=== PATIENT | female | born 1980 | race African-American/Black ===

== ENCOUNTER 2018-04-19 14:25 | Emergency (ER) | payer OTHER, SELFPAY ==
[2018-04-19] MEDS ORDERED: Ibuprofen 800 MG TAB ONE (16:12)
[2018-04-19] MEDS ORDERED: Lidocaine 1% w/Epinephrine 1:100K 20 ML VIAL ONE (16:15)
[2018-04-19] MEDS ORDERED: Bacitracin Zinc 1 Packet ONE (17:12)
== END 2018-04-19 17:27 | disposition home or self-care (01) ==
LOC: ERS 14:25
DX: L02.412 Cutaneous abscess of left axilla (principal); L73.2 Hidradenitis suppurativa; F17.210 Nicotine dependence, cigarettes, uncomplicated
CPT/HCPCS: 10060; J2001

== ENCOUNTER 2018-09-07 10:56 | Outpatient (CLI) | payer OTHER ==
[~2018-09-07 10:56] MED LIST: Iopamidol 370 76% 100 ML VIAL ONE
--- NOTE | 2018-09-07 15:12 | CT ---
CT ABDOMEN AND PELVIS WITH IV AND ORAL CONTRAST: Date: 09/07/18 HISTORY: Liver mass, enlarged uterus. FINDINGS: The exam was not performed using the liver mass/hemangioma protocol. Comparison made to CT stone protocol of 08/13/[address] abdomen/pelvis with contrast of 03/29/12. There is a calcified granuloma in the right lung base. The spleen, pancreas, adrenal glands, and kidneys are normal. Calcified gallstones are present. There is a 2.3 cm enhancing mass in the left lobe of the liver. This is larger than on the exam of . No free air, free fluid, or lymphadenopathy is seen in the abdomen or pelvis. The small bowel loops a re not abnormally dilated. A normal appearing appendix is seen. There is colonic diverticulosis witho ut evidence of diverticulitis. Enlarged, heterogeneous uterus consistent with fibroids is present. There is a 5.5 cm cystic adnexal mass. No acute osseous abnormalities are see. IMPRESSION: 1. Enhancing 2.3 cm left hepatic mass. This should be evaluated with a technetium-99m labeled RBC sc an. 2. Cholelithiasis. 3. Fibroid uterus. 4. 5.5 cm cystic adnexal mass. This should be evaluated with pelvic ultrasound. POS: [facility]
== END 2018-09-07 10:57 | disposition home or self-care (01) ==
LOC: BICCT 10:56
PROVIDERS: ATTEND Family Medicine
DX: N85.2 Hypertrophy of uterus (principal); R16.0 Hepatomegaly, not elsewhere classified; K80.20 Calculus of gallbladder without cholecystitis without obstruction; D25.9 Leiomyoma of uterus, unspecified; N83.8 Other noninflammatory disorders of ovary, fallopian tube and broad ligament
CPT/HCPCS: 74177

== ENCOUNTER 2018-11-21 01:42 | Observation (INO) | payer MEDICAID ==
[2018-11-21] MEDS ORDERED: Morphine 2 MG/ML SYRINGE SLOW IVP PRN (04:09)
[2018-11-21 04:17] VITALS: BMI 25.5
[2018-11-21] MEDS: Sodium Chloride 0.9% 1,000 ML IV SCH ×2 (04:20→11:53)
[2018-11-21] MEDS ORDERED: Ondansetron HCl/PF 4 MG/2 ML Vial IVP PRN (08:44)
[2018-11-21] MEDS ORDERED: Promethazine HCl 25 MG/ML VIAL SLOW IVP PRN (08:44)
[2018-11-21] MEDS ORDERED: Promethazine HCl 25 MG/ML VIAL IM PRN (08:44)
[2018-11-21] MEDS ORDERED: Bupivacaine/Epinephrine 0.25% 30 ML VIAL ONE (09:12)
[2018-11-21] MEDS ORDERED: Midazolam HCl 2 mg/2 ml Vial ONE (09:34)
[2018-11-21] MEDS ORDERED: Fentanyl 100 MCG/2 ML VIAL ONE (09:34)
--- NOTE | 2018-11-21 09:57 | HP ---
CHIEF COMPLAINT: Right upper quadrant abdominal pain, cholelithiasis. HISTORY OF PRESENT ILLNESS: The patient is a very pleasant 37-year-old black female. She presented to the emergency room in [place] last night, complaining of severe epigastric and right upper quadrant abdominal pain. Attempts were made to treat this medically without significant success. She continued to have fairly significant pain. CT scan was obtained, revealing cholelithiasis with evidence of cholecystitis. There was recognized to be a fibroid uterus as well. Laboratory studies showed elevated white blood cell count of 12.1 with a hemoglobin of 10.7. Her liver function tests are entirely normal. Her lipase is slightly elevated at 114. Of note is that her lipase was elevated at 99 four months ago. She was transferred to this facility for further care by myself. PAST MEDICAL HISTORY: She denies significant medical problems. PAST SURGICAL HISTORY: Bilateral tubal ligation. MEDICATIONS: She takes no regular prescription medications. She took some tramadol when she had onset of pain last night, however. ALLERGIES: NO KNOWN DRUG ALLERGIES. PERSONAL AND SOCIAL HISTORY: She is single with 4 children. She works at [employer]. She smokes 1 pack per day of cigarettes. She does not drink alcohol. Her primary care physician is Dr. Knutson. REVIEW OF SYSTEMS: Otherwise unremarkable. FAMILY HISTORY: Noncontributory. PHYSICAL EXAMINATION: VITAL SIGNS: She is afebrile. Vital signs are within normal limits. GENERAL: She is a well-developed, well-nourished, pleasant black female, resting in bed, in no acute distress. She is alert and oriented x3. HEAD, EYES, EARS, NOSE, AND THROAT: Unremarkable. NECK: Supple without mass or tenderness. LUNGS: Clear to auscultation throughout. CARDIAC: Regular rate and rhythm without murmur. ABDOMEN: Soft. She does have focal tenderness in the right upper quadrant with obvious guarding. ASSESSMENT: The patient with cholelithiasis and cholecystitis. PLAN: Laparoscopic cholecystectomy. I have discussed the operation in detail with the patient as well as potential risks. She understands and agrees to proceed with surgery at this time. Job ID: [id number]
[2018-11-21] MEDS ORDERED: SUGAMMADEX SODIUM 200 MG/2 ML VIAL ONE (10:49)
[2018-11-21] MEDS ORDERED: Ondansetron PF 4 MG/2 ML Vial ONE ×2 (11:15→13:16)
--- NOTE | 2018-11-21 11:57 | OP ---
DATE OF PROCEDURE: 11/21/2018 PREOPERATIVE DIAGNOSIS: Symptomatic cholelithiasis. POSTOPERATIVE DIAGNOSIS: Symptomatic cholelithiasis with evidence of chronic cholecystitis. OPERATION PERFORMED: Laparoscopic cholecystectomy. ANESTHESIA: General endotracheal anesthesia. INDICATIONS: The patient is a very pleasant 37-year-old black female. She presents with symptoms of cholecystitis and ultrasound-proven cholelithiasis with evidence of cholecystitis. She was taken to the operating room at this time for laparoscopic cholecystectomy. PROCEDURE IN DETAIL: Informed consent was obtained. The patient was taken to the operating room where general endotracheal anesthesia was obtained with the patient in the supine position. The abdomen was prepped with Betadine and draped in the usual sterile fashion. 0.25% Marcaine with epinephrine was infiltrated below the umbilicus and a 10 mm infraumbilical incision was created. A Veress needle was passed through this incision into the peritoneal cavity. A pneumoperitoneum was established using carbon dioxide up to a pressure of 15 mmHg. Local anesthetic was infiltrated and 3 additional 5 mm right upper quadrant incisions were created. Through the mid incision, a 5 mm port was passed into the peritoneal cavity. The camera was passed through this port and under direct vision, an 11 port was passed through the infraumbilical incision. The camera was replaced through this port, and under direct vision, 2 additional 5 mm ports were passed through the incisions already created. The gallbladder was grasped and retracted in a cephalad direction. Minimal adhesions were bluntly stripped away from the apex of the gallbladder, and the apex was retracted laterally and inferiorly. Careful dissection was carried out to the apex of the gallbladder to identify the cystic duct and cystic artery. These were each carefully dissected circumferentially. The duct was of normal caliber. Both the duct and the artery were divided between clips, leaving 2 on the side to remain within the abdomen. The gallbladder was then dissected out of the gallbladder fossa using electrocautery and removed through the infraumbilical port site. The fascia was closed with 0 Vicryl suture and a GraNee needle. The right upper quadrant was inspected and irrigated. All irrigant was aspirated. All ports and instruments were removed under direct vision. Pneumoperitoneum was carefully evacuated. Additional local anesthetic was infiltrated into each port site. The skin edges were approximated with 4-0 Monocryl subcuticular sutures, and Dermabond was placed externally. There were no complications. The patient tolerated the procedure well and was taken to the recovery room in stable condition. FINDINGS: The patient's gallbladder was sclerotic with a very thickened gallbladder wall. There were several gallstones present within. There were minimal pericholecystic adhesions. The duct was small and noninflamed. Cholangiogram was not obtained. There was negligible blood loss and no complications. The patient tolerated the procedure well. Job ID: [id number]
[2018-11-21] MEDS ORDERED: Glycopyrrolate 0.2 MG/ML 5 ML SYRINGE ONE (13:16)
[2018-11-21] MEDS ORDERED: Lidocaine 2% PF 5 ML VIAL ONE (13:16)
[2018-11-21] MEDS ORDERED: Dexamethasone 20 MG/5 ML VIAL ONE (13:16)
[2018-11-21] MEDS ORDERED: Rocuronium Bromide 10 MG/ML (10ML VIAL) ONE (13:16)
[2018-11-21] MEDS ORDERED: PROPOFOL 200 MG/20 ML VIAL ONE (13:16)
[2018-11-21] MEDS ORDERED: Ketorolac Tromethamine 30 MG/ML VIAL ONE (13:16)
[2018-11-21 16:50] VITALS: BP 124/78; TEMP 98.5
== END 2018-11-21 17:24 | disposition home or self-care (01) ==
LOC: SURG A 03:55
PROVIDERS: ADMIT Specialist; ATTEND Specialist
PROC: 0FT44ZZ Resection of Gallbladder, Percutaneous Endoscopic Approach (ICD-10-PCS; principal; 2018-11-21)
DX: K80.12 Calculus of gallbladder with acute and chronic cholecystitis without obstruction (principal); F17.210 Nicotine dependence, cigarettes, uncomplicated; Z98.51 Tubal ligation status
CPT/HCPCS: 88304; 96360; 96361; G0378; J0131; J1100; J1885; J2001; J2250; J2405; J2704; J3010